=== PATIENT | female | born 1980 | race Caucasian/White ===

== ENCOUNTER 2016-12-25 18:52 | Emergency (ER) | payer OTHER ==
[~2016-12-25] VITALS: Ht 170.2 cm; Wt 136.4 kg
[~2016-12-25 18:52] MED LIST: IBUP800T28 PO; MULT-1018 PO; OXYC1TAB24 PO
[2016-12-25 19:06] VITALS: BP 136/74; PULSE 80; RESP 18; O2SAT 99
--- NOTE | 2016-12-25 20:25 | ED.REPORT ---
HPI-Rash / Abscess Date of Service Dec 25, 2016 ED Provider: Corona Jane MD A 36 year old female with a history of recently diagnosed rheumatoid arthritis presents to the ED complaining of a rash. The pt noticed small red spots on her lower left leg one week ago. The spots were not especially painful, but have grown and multiplied since. The pt now reported mild itching and chills, but denies fever, diaphoresis, difficulty breathing, lip swelling or tongue swelling. She has been taking ibuprofen for her arthritis pain, but no medications for the rash. Nursing Notes Stated Complaint: RED LUMP ON LEG,CONCERN OF INFECTION Chief Complaint: Skin Rash/Abscess Nursing Notes Reviewed: Yes ([employer], ) Allergies: Coded Allergies: No Known Allergies (Unverified , 12/25/16) Scheduled Cephalexin (Cephalexin) 500 Mg Tablet 500 MG PO TID Multivitamin (Multi Vitamin Daily) 1 Each Tablet 1 EACH PO DAILY Prednisone (PredniSONE) 20 Mg Tablet 60 MG PO DAILY Scheduled PRN Ibuprofen (Ibuprofen) 800 Mg Tablet 800 MG PO TID PRN PRN For Pain oxyCODONE-Acetaminophen 5-325 mg (oxyCODONE-Acetaminophen 5-325 mg) 1 Each Tablet 1 TAB PO Q4H PRN PRN For Pain General Time Seen by MD: 20:18 Chief Complaint Rash Hx Obtained From: Patient Arrived By: Walk-in Onset Occurred: 1 week ago Symptom Duration: Since onset Recent Healthcare: No recent hospitalization, Recent doctor visit Similar Sx Previous: No Past Medical History Past Medical History rheumatoid arthritis Past Surgical History PPTL LEEP procedure Reports: (x2) Smoking History Former Smoker, Unknown if Ever Smoker Social History Other Social History: Good social support Ambulatory Status Independent Review of Systems Review of Systems Note: denies difficulty breathing denies lip or tongue swelling Constitutional: Reports: Chills, Denies: Fever Respiratory: Denies: Non-productive cough, Shortness of breath Cardiovascular: Denies: Chest pain GI: Denies: Abdominal pain, Vomiting Musculoskeletal: Denies: Neck pain Skin: Reports Itching, Reports Rash, Denies Diaphoresis Complete sys rev & neg: except as marked. Physical Exam Initial Vital Signs Vital Signs (First) Date Time Temp Pulse Resp B/P Pulse Ox O2 Delivery O2 Flow Rate FiO2 12/25/16 19:06 36.5 80 18 136/74 99 Room Air Initial VS: Reviewed, Vital signs normal General/Constitutional: Awake, Alert Skin: Warm, Dry macular rash on the left lower extremity, several spots one 4 cm spot on the left lateral leg, concerning for possible developing cellulitis Head / Eyes: Atraumatic, Normocephalic, PERRL, EOMI ENT: Atraumatic, Airway patent, Mucous membranes moist Respiratory / Chest: Atraumatic, Breath sounds NL, Breath sounds = bilat, No respiratory distress Cardiovascular: Heart rate NL, Regular rhythm, Heart sounds NL Upper Extremity / MS: Atraumatic, Full range of motion Lower Extremity / Pelvis / MS: Atraumatic, Full range of motion Neurologic: Oriented X3, Speech NL, No motor deficits, No sensory deficits Neck: Atraumatic, Supple, Full range of motion Abdomen: Atraumatic, Soft, Non-tender Back: Atraumatic, Full range of motion Psychiatric: Affect NL, Mood NL Re-Eval/Medical Decision Med Decision/Clinical Course This is a 36-year-old female presents complaining some increasing redness of the left lower leg. She has noted a few spots over the past week, but over the past 24 hours as been increasing redness and discomfort. Is not really itching at the moment. She denies any known insect bites. She denies any other areas and was concerned about an infection developing. She does note she was recently diagnosed with rheumatoid arthritis by lab work that she has had some muscle aches. She clinically appears well and is nontoxic. Her vitals are normal, she is not febrile. On examination of the left lower extremity she has several areas of macular erythema, almost like insect bites-but the to an area on the lower leg R 's fairly sizable dose of the ones that become increasingly red and uncomfortable. This is concerning for the possibility of developing cellulitis- there is no induration, no signs of abscess, and the diagnosis is less than certain. The underlying etiology of the various macular erythematous areas is also unclear. I have explained this. But I think is not unreasonable to try a course of antibiotics and a short course of steroids. Patient is agreeable to this. Return precautions reviewed. Patient is discharged in stable condition. Source of Hx: Old records Re-Evaluation/Progress : Time of Eval: 20:18 Patient Status: Condition improved Re-Evaluation/Progress Note: Pt informed of the diagnosis and plan for discharge during the initial interview. The pt understands and agrees with the plan. All questions are addressed at this time. Differential Diagnosis: Positive: Cellulitis, Negative: Abscess, Allergic reaction, Candidiasis, Chicken pox, Contact dermatitis, Erythema multiforme, Hand, foot, mouth disease, Heat rash, miliaria , Henoch-Schonlein purpura, Idiopathic thromb purpura, Impetigo, Intertrigo, Lyme disease, MRSA, Tavo mt spotted fever, Scabies, Scarlet fever, Skin abscess , Urticaria Counseled Regarding: Diagnosis, Need for follow-up, When/why to return to ED Discharge & Departure Impression: Primary Impression: Rash Disposition: Home Discharge Condition All VS Reviewed: Yes Condition: Stable Additional Instructions: 1. A definitive cause of the rash is not established. 2. Given the increasing redness and discomfort it is reasonable to treat with antibiotics: take cephalexin 500mg three times a day x 7 days. 3. I also recommend a short course of prednisone 60mg (three 20mg tabs together once a day for 5 days). 4. Return if new or worsening symptoms. Referrals: Amber Magaña MD (PCP) Alana Attestation Portions of this note were transcribed by Callie Molina. I, Dr. Jane personally performed the history, physical exam and medical decision-making; I reviewed and confirmed the accuracy of the information in the transcribed note. Signed by: Alana Diaz, 12/25/2016 and 2222. copies to: Amber Magaña MD, Matthew F MD Dec 25, 2016 20:25 CALLIE MOLINA Dec 25, 2016 20:39
[2016-12-25] MEDS ORDERED: predniSONE 20 mg Tablet PO ONE (20:35)
[2016-12-25] MEDS ORDERED: PRE20 PO (20:37)
[2016-12-25] MEDS ORDERED: CEPH500T PO (20:37)
== END 2016-12-25 20:57 | disposition home or self-care (01) ==
LOC: SED 18:52
DX: R21 Rash and other nonspecific skin eruption (principal); M06.9 Rheumatoid arthritis, unspecified; Z87.891 Personal history of nicotine dependence